=== PATIENT | female | born 1950 | race African-American/Black ===

== ENCOUNTER 2019-05-31 11:32 | Emergency (ER) | payer BC, OTHER ==
[~2019-05-31] VITALS: Ht 167.6 cm; Wt 77.0 kg
[2019-05-31] MEDS ORDERED: KETOROLAC 30MG/ML VIAL IM ONE (15:15)
[2019-05-31 15:32] LABS: BASOPHILS % 0.3 % (0.0-2.0); EOSINOPHILS % 0.2 % (0.0-5.0); HEMATOCRIT. 33.8 % (36.0-48.0); HEMOGLOBIN. 11.1 g/dL (12.0-16.0); LYMPHOCYTES % 15.3 % (20.0-50.0); MEAN CORPUSCULAR HEMOGLOBIN 30.2 pg (28.0-32.0); MEAN CORPUSCULAR VOLUME 91.7 fL (81.0-99.0); MEAN PLATELET VOLUME 9.7 fl (7.4-10.4); MONOCYTES % 7.2 % (2.0-8.0); PLATELET 200 x1000/uL (130-400); RED BLOOD CELL COUNT 3.69 mill/uL (4.2-5.4); RED CELL DISTRIBUTION WIDTH 15.4 % (11.6-14.6)
[2019-05-31 15:34] LABS: CHLORIDE 108 mEq/L (98-107)
[2019-05-31 17:07] VITALS: BP 142/60
== END 2019-05-31 16:46 | disposition home or self-care (01) ==
LOC: ER 12:14 → EDBD 12:14 → ER 16:46
DX: L03.90 Cellulitis, unspecified (principal); M79.672 Pain in left foot; E11.9 Type 2 diabetes mellitus without complications; F17.200 Nicotine dependence, unspecified, uncomplicated
CPT/HCPCS: 36415; 73630; 80048; 85025; 96372; 99284; J1885